=== PATIENT | male | born 1960 | race African-American/Black ===

== ENCOUNTER 2016-11-29 20:45 | Emergency (ER) | payer MEDICAID ==
[~2016-11-29] VITALS: Ht 180.3 cm; Wt 71.0 kg
[2016-11-29] MEDS ORDERED: CLINDAMYCIN HCL 150MG CAPSULE PO ONE (23:15)
[2016-11-29] MEDS ORDERED: ACETAMINOPHEN WITH CODEINE 300/30MG TABLET PO ONE (23:15)
[2016-11-29 23:55] VITALS: BP 119/78
== END 2016-11-30 | disposition home or self-care (01) ==
LOC: ER 20:47
DX: K04.7 Periapical abscess without sinus (principal); E03.9 Hypothyroidism, unspecified; F17.200 Nicotine dependence, unspecified, uncomplicated
CPT/HCPCS: 99283